=== PATIENT | female | born 1985 ===

== ENCOUNTER 2016-07-12 19:26 | Emergency (ER) | payer OTHER ==
[2016-07-12 19:30] VITALS: BMI 23.8
[2016-07-12 19:32] VITALS: BP 122/62; PULSE 94; RESP 19; TEMP 98.2; O2SAT 99
--- NOTE | 2016-07-12 19:59 | ED PDOC ---
Arrival/HPI - General Chief Complaint: Abdominal Pain Time Seen by Provider: 07/12/16 19:35 Historian: Patient - History of Present Illness Narrative History of Present Illness (Text): 07/12/16 20:00 Lindsey Odonnell is a 31 year old female, whose past medical history includes appendectomy, who presents to the Emergency department complaining of RLQ pain for the past few days. Patient notes pain is intermittent but has been occurring more frequently today. Patient denies any radiating pain, vaginal discharge, vaginal bleeding, hematuria, urinary frequency, dysuria, nausea, vomiting, diarrhea, fever, chills, back pain, headache, dizziness, or any other complaints Time/Duration: Other (few days) Symptom Onset: Gradual Symptom Course: Unchanged, Intermittent Activities at Onset: Light Context: Home Past Medical History - Provider Review Nursing Documentation Reviewed: Yes - Infectious Disease Hx of Infectious Diseases: None - Tetanus Immunization Tetanus Immunization: Unknown - Cardiac Hx Cardiac Disorders: Yes Other/Comment: "leaky heartvalve" - Pulmonary Hx Asthma: Yes - Neurological Hx Neurological Disorder: No - HEENT Hx HEENT Disorder: No - Renal Hx Renal Disorder: No - Endocrine/Metabolic Hx Endocrine Disorders: No - Hematological/Oncological Hx Blood Disorders: Yes Hx Anemia: Yes - Integumentary Hx Dermatological Disorder: No - Musculoskeletal/Rheumatological Hx Musculoskeletal Disorders: No - Gastrointestinal Hx Gastrointestinal Disorders: No - Genitourinary/Gynecological Hx Genitourinary Disorders: No - Psychiatric Hx Psychophysiologic Disorder: No Hx Depression: No Hx Emotional Abuse: No Hx Physical Abuse: No Hx Substance Use: No - Surgical History Hx Appendectomy: Yes Hx Section: Yes (x1) - Anesthesia Hx Anesthesia: Yes Hx Anesthesia Reactions: No Hx Malignant Hyperthermia: No - Suicidal Assessment Feels Threatened In Home Enviroment: No Family/Social History - Physician Review Nursing Documentation Reviewed: Yes Family/Social History: No Known Family HX Smoking Status: Never Smoked Hx Alcohol Use: No Hx Substance Use: No Hx Substance Use Treatment: No Allergies/Home Meds Allergies/Adverse Reactions: Allergies azithromycin Allergy (Verified 07/12/16 19:31) RASH cephalexin Allergy (Verified 07/12/16 19:31) RASH clarithromycin Allergy (Verified 07/12/16 19:31) URTICARIA Penicillins Allergy (Verified 07/12/16 19:31) RASH Home Medications: Home Meds Medication Instructions Recorded Confirmed Albuterol 0.09 mg IH DAILY PRN 09/24/12 07/12/16 Review of Systems - Physician Review All systems were reviewed & negative as marked: Yes - Review of Systems Constitutional: Normal. absent: Fevers Eyes: Normal ENT: Normal Respiratory: Normal. absent: SOB, Cough Cardiovascular: Normal. absent: Chest Pain Gastrointestinal: Abdominal Pain. absent: Diarrhea, Nausea, Vomiting Genitourinary Female: Normal. absent: Dysuria, Frequency, Hematuria, Urine Output Changes, Vaginal Bleeding, Vaginal Discharge Musculoskeletal: Normal. absent: Back Pain, Neck Pain Skin: Normal. absent: Rash Neurological: Normal. absent: Headache, Dizziness Endocrine: Normal Hemo/Lymphatic: Normal Psychiatric: Normal Physical Exam Vital Signs Reviewed: Yes Vital Signs Temp Pulse Resp BP Pulse Ox 07/12/16 19:32 98.2 F 94 H 19 122/62 99 Temperature: Afebrile Blood Pressure: Normal Pulse: Regular Respiratory Rate: Normal Appearance: Positive for: Well-Appearing, Non-Toxic, Comfortable Pain Distress: None Mental Status: Positive for: Alert and Oriented X 3 - Systems Exam Head: Present: Atraumatic, Normocephalic Pupils: Present: PERRL Extroacular Muscles: Present: EOMI Conjunctiva: Present: Normal Mouth: Present: Moist Mucous Membranes Neck: Present: Normal Range of Motion Respiratory/Chest: Present: Clear to Auscultation, Good Air Exchange. No: Respiratory Distress, Accessory Muscle Use Cardiovascular: Present: Regular Rate and Rhythm, Normal S1, S2. No: Murmurs Abdomen: Present: Normal Bowel Sounds. No: Tenderness, Distention, Peritoneal Signs Back: Present: Normal Inspection Upper Extremity: Present: Normal Inspection. No: Cyanosis, Edema Lower Extremity: Present: Normal Inspection. No: Edema Neurological: Present: GCS=15, CN II-XII Intact, Speech Normal Skin: Present: Warm, Dry, Normal Color. No: Rashes Psychiatric: Present: Alert, Oriented x 3, Normal Insight, Normal Concentration Medical Decision Making ED Course and Treatment: 07/12/16 20:00 Impression: 31 year old female complaining of intermittent RLQ last few days, more frequent today. Plan: -- Transvaginal US -- UA -- Reassess and disposition Progress Notes: 07/12/16 21:06 Reviewed sono, Transvaginal US shows: 1. No acute findings. 2. Non-acute findings are described above. 07/12/16 21:45 Discussed results of US, labs, and Urinalysis with pt. Pt still concerned as to why she is experiencing abdominal pain. Pt was offered CT scan. Pt is agreeable with plan. CT Abdomen and Pelvis with IV contrast ordered. 07/13/16 00:59 reviewed radiology, CT Abdomen and Pelvis shows: 1. Involuting or ruptured LEFT ovarian follicle/cyst. 2. Incidental/non-acute findings are described above. 07/13/16 01:10 On re-evaluation, the patient feels better and is in no acute distress. I have discussed the results and plan with the patient, who expresses understanding. Patient in agreement with plan to discharged home. Patient is stable for discharge. Patient was instructed to follow up with physician/clinic in 1-2 days or return if symptoms worsen or new concerning symptoms arise. - Lab Interpretations Lab Results: 07/12/16 23:01 07/12/16 23:01 Lab Results 07/12/16 23:01: Sodium 137, Potassium 4.5, Chloride 103, Carbon Dioxide 29, Anion Gap 10, BUN 18, Creatinine 0.7, Est GFR ( Amer) > 60, Est GFR (Non- Af Amer) > 60, Random Glucose 93, Calcium 9.1, Total Bilirubin 0.6, AST 18, ALT 29, Alkaline Phosphatase 69, Total Protein 7.1, Albumin 3.9, Globulin 3.3, Albumin/Globulin Ratio 1.2 07/12/16 23:01: WBC 7.3, RBC 3.83, Hgb 11.6 L, Hct 33.7 L, MCV 88.0, MCH 30.3, MCHC 34.4, RDW 13.2, Plt Count 301, MPV 9.8, Gran % 44.8 L, Lymph % (Auto) 41.8 H, [place] % (Auto) 8.3 H, Eos % (Auto) 4.8, Baso % (Auto) 0.3, Gran # 3.26, Lymph # 3.0, [place] # 0.6, Eos # 0.4, Baso # 0.02 07/12/16 19:57: Urine Color Yellow, Urine Appearance Clear, Urine pH 6.5, Ur Specific [place] 1.025, Urine Protein Negative, Urine Glucose (UA) Negative, Urine Ketones Negative, Urine Blood Small H, Urine Nitrate Negative, Urine Bilirubin Negative, Urine Urobilinogen 1.0 H, Ur Leukocyte Esterase Negative, Urine RBC 5 - 10, Urine WBC 2 - 5, Ur Epithelial Cells 4 - 5, Urine Bacteria Small, Urine Other Mucus, Urine HCG, Qual Negative I have reviewed the lab results: Yes - RAD Interpretation Narrative RAD Interpretations (Text): Transvaginal US shows: Uterus/cervix: Uterus measures 7.4 x 4.3 x 4.7 cm in size. No myometrial mass. Endometrium: 0.5 cm in thickness. Right ovary: 1.6 x 1.7 x 2.5 cm in size. No mass. Small follicles. Normal flow. Left ovary: 1.9 x 2.6 x 1.3 cm in size. No mass. Small follicles. Normal flow. Free fluid: No significant free fluid. Bladder: Unremarkable as visualized. IMPRESSION: 1. No acute findings. 2. Non-acute findings are described above. CT Abdomen and Pelvis shows: Lower thorax: No acute findings. ABDOMEN: Liver: Minimal periportal edema. Gallbladder and bile ducts: No calcified stones. No ductal dilation. Pancreas: No ductal dilation. No mass. Spleen: No splenomegaly. Adrenals: No mass. Kidneys and ureters: Too small to characterize lesion within RIGHT kidney. No hydronephrosis. Stomach and bowel: No definite mural thickening. No obstruction. Appendix: No definite findings to suggest acute appendicitis. PELVIS: Bladder: Unremarkable. Reproductive: Slight heterogeneity of uterus. 1.3 x 1.2 x 1.3 cm peripherally enhancing hypodensity with crenulated margins within LEFT ovary(coronal image 49, axial image 123). ABDOMEN and PELVIS: Intraperitoneal space: Trace free fluid within pelvis. No free air. Bones/joints: No acute fracture. Soft tissues: Unremarkable. Vasculature: Unremarkable. No abdominal aortic aneurysm. Lymph nodes: No pathologically enlarged lymph nodes. IMPRESSION: 1. Involuting or ruptured LEFT ovarian follicle/cyst. 2. Incidental/non-acute findings are described above. Radiology Orders: 07/12/16 20:00 TRANSVAGINAL [US] Stat 07/12/16 21:46 ABD & PELVIS IV CONTRAST ONLY [CT] Stat Admitting Clerk: Radiologist - Medication Orders Current Medication Orders: Discontinued Medications Iohexol (Omnipaque 350 100 Ml) Confirm Administered Dose 350 mg .ROUTE .STK-MED ONE Stop: 07/13/16 00:03 - Scribe Statement The provider has reviewed the documentation as recorded by the Scribe Miya Mclaughlin All medical record entries made by the Scribe were at my direction and personally dictated by me. I have reviewed the chart and agree that the record accurately reflects my personal performance of the history, physical exam, medical decision making, and the department course for this patient. I have also personally directed, reviewed, and agree with the discharge instructions and disposition. Disposition/Present on Arrival - Present on Arrival Any Indicators Present on Arrival: No History of DVT/PE: No History of Uncontrolled Diabetes: No Urinary Catheter: No History of Decub. Ulcer: No History Surgical Site Infection Following: None - Disposition Have Diagnosis and Disposition been Completed?: Yes Diagnosis: Abdominal pain Disposition: HOME/ ROUTINE Disposition Time: 01:10 Condition: GOOD Discharge Instructions (ExitCare): Acute Abdominal Pain (ED) Referrals: Vane Mendoza MD [Primary Care Provider] - Follow up with primary Forms: WORK NOTE
[2016-07-12 20:17] LABS: PH,URINE 6.5 (4.7-8.0); URINE BILIRUBIN NEGATIVE (NEGATIVE); URINE BLOOD SMALL (NEGATIVE); URINE GLUCOSE (UA) NEGATIVE (NEGATIVE); URINE KETONE NEGATIVE (NEGATIVE); URINE LEUKOCYTE ESTERASE NEGATIVE Leu/uL (NEGATIVE); URINE PROTEIN NEGATIVE mg/dL (<30 mg/dL)
[2016-07-12 20:22] LABS: URINE APPEARANCE CLEAR (CLEAR); URINE COLOR YELLOW (YELLOW)
[2016-07-12 20:34] LABS: URINE BACTERIA SMALL (NEG)
--- NOTE | 2016-07-12 21:06 | US ---
EXAM: US Pelvis Complete, Transabdominal CLINICAL HISTORY: 31 years old, female; Pain; Abdominal pain; Right lower quadrant; Additional info: Rlq pain TECHNIQUE: Real-time transabdominal pelvic ultrasound (complete) with image documentation. COMPARISON: No relevant prior studies available. FINDINGS: Uterus/cervix: Uterus measures 7.4 x 4.3 x 4.7 cm in size. No myometrial mass. Endometrium: 0.5 cm in thickness. Right ovary: 1.6 x 1.7 x 2.5 cm in size. No mass. Small follicles. Normal flow. Left ovary: 1.9 x 2.6 x 1.3 cm in size. No mass. Small follicles. Normal flow. Free fluid: No significant free fluid. Bladder: Unremarkable as visualized. IMPRESSION: 1.No acute findings. 2.Non-acute findings are described above. EXAM: US Pelvis, Transvaginal CLINICAL HISTORY: 31 years old, female; Pain; Abdominal pain; Right lower quadrant; Additional info: Rlq pain TECHNIQUE: Real-time transvaginal pelvic ultrasound (complete) with image documentation. Transvaginal imaging was used for better evaluation of the endometrium and adnexa. COMPARISON: No relevant prior studies available. FINDINGS: Uterus/cervix: Uterus measures 7.4 x 4.3 x 4.7 cm in size. No myometrial mass. Endometrium: 0.5 cm in thickness. Right ovary: 1.6 x 1.7 x 2.5 cm in size. No mass. Small follicles. Normal flow. Left ovary: 1.9 x 2.6 x 1.3 cm in size. No mass. Small follicles. Normal flow. Free fluid: No significant free fluid. Bladder: Empty bladder which cannot be evaluated with this probe.
[2016-07-12 23:06] LABS: ADD MANUAL DIFF? NO
[2016-07-12 23:12] LABS: BASO # 0.02 K/mm3 (0.0-2.0); BASO % 0.3 % (0.0-3.0); EOS # 0.4 (0.0-0.7); EOS % 4.8 % (1.5-5.0); GRAN # 3.26 (1.4-6.5); GRAN % 44.8 % (50.0-68.0); HEMATOCRIT 33.7 % (36.0-48.0); LYMPH % 41.8 % (22.0-35.0); MEAN CORPUSCULAR HEMOGLOBIN 30.3 pg (25.0-35.0); MEAN CORPUSCULAR HGB CONC 34.4 g/dl (31.0-37.0); MEAN PLATELET VOLUME 9.8 fl (7.0-11.0); MONO # 0.6 (0.1-0.6); MONO % 8.3 % (1.0-6.0); PLATELET COUNT 301 10^3/uL (120.0-450.0); RED CELL DISTRIBUTION WIDTH 13.2 % (11.5-14.5); WHITE BLOOD COUNT 7.3 10^3/ul (4.5-11.0)
[2016-07-12 23:19] LABS: ALB/GLOB RATIO 1.2 (1.1-1.8); ALKALINE PHOSPHATASE 69 U/L (38-133); ALT/SGPT 29 U/L (7-56); AST/SGOT 18 U/L (15-39); BILIRUBIN,TOTAL 0.6 mg/dL (0.2-1.3); BLOOD UREA NITROGEN 18 mg/dL (7-21); CALCIUM 9.1 mg/dL (8.4-10.5); CARBON DIOXIDE 29 mmol/L (21-33); CHLORIDE 103 mmol/L (98-107); GFR AFRICAN-AMERICAN > 60; GLUCOSE,RANDOM 93 mg/dL (70-110); POTASSIUM 4.5 mmol/L (3.6-5.0); SODIUM 137 mmol/L (132-148); TOTAL PROTEIN 7.1 g/dL (5.8-8.3)
[2016-07-13] MEDS ORDERED: Iohexol 350 MG/100 ML VIAL ONE (00:02)
--- NOTE | 2016-07-13 09:18 | CT ---
PROCEDURE: CT Abdomen and Pelvis with contrast HISTORY: abd pain COMPARISON: None. TECHNIQUE: Contrast dose: 100 mL Omnipaque 350 Radiation dose: Total exam DLP = 240.67 mGy-cm. This CT exam was performed using one or more of the following dose reduction techniques: Automated exposure control, adjustment of the mA and/or kV according to patient size, and/or use of iterative reconstruction technique. FINDINGS: LOWER THORAX: Unremarkable. LIVER: Unremarkable. No gross lesion or ductal dilatation. GALLBLADDER AND BILE DUCTS: Unremarkable. PANCREAS: Unremarkable. No gross lesion or ductal dilatation. SPLEEN: Unremarkable. ADRENALS: Unremarkable. No mass. KIDNEYS AND URETERS: Right lower pole cortical cyst, 6 mm. No calculus or hydronephrosis. VASCULATURE: Unremarkable. No aortic aneurysm. BOWEL: No bowel obstruction. Mild retained feces. APPENDIX: Not identified. No secondary findings to suggest acute appendicitis. PERITONEUM: Trace fluid in cul-de-sac. LYMPH NODES: Unremarkable. No enlarged lymph nodes. BLADDER: Poorly distended. No gross abnormality. REPRODUCTIVE: Unremarkable uterus. Irregularly-shaped peripherally enhancing left ovarian structure, likely involuting or ruptured follicle. This measures 2 cm in greatest dimension. BONES: No acute fracture. OTHER FINDINGS: None. IMPRESSION: Involuting/ ruptured left ovarian follicle. Trace fluid in cul-de-sac. No other acute abnormality identified. Preliminary interpretation of this examination was reported by [employer] at 12:31 a.m. on 07/13/2016. There is concurrence of this report with the preliminary interpretation.
== END 2016-07-13 01:20 | disposition home or self-care (01) ==
LOC: ED 19:26
DX: R10.9 Unspecified abdominal pain (principal)
CPT/HCPCS: 74177; 76830; 80053; 81001; 84703; 85025; 99284; Q9967

== ENCOUNTER 2017-07-09 12:11 | Emergency (ER) | payer OTHER ==
[2017-07-09 12:11] VITALS: BMI 23.8
[2017-07-09 12:21] VITALS: RESP 18; TEMP 98.3; O2SAT 96
[2017-07-09] MEDS ORDERED: Sodium Chloride 0.9% 1,000 ML IV STA (12:28)
[2017-07-09 12:54] LABS: BASO # 0.02 K/mm3 (0.0-2.0); BASO % 0.3 % (0.0-3.0); EOS # 0.1 (0.0-0.7); EOS % 1.9 % (1.5-5.0); GRAN # 3.77 (1.4-6.5); GRAN % 63.9 % (50.0-68.0); HEMOGLOBIN 13.7 g/dL (12.0-16.0); LYMPH # 1.6 (1.2-3.4); LYMPH % 26.8 % (22.0-35.0); MEAN CELL VOLUME 88.2 fl (80.0-105.0); MEAN CORPUSCULAR HEMOGLOBIN 30.6 pg (25.0-35.0); MEAN CORPUSCULAR HGB CONC 34.7 g/dl (31.0-37.0); MEAN PLATELET VOLUME 9.6 fl (7.0-11.0); MONO # 0.4 (0.1-0.6); MONO % 7.1 % (1.0-6.0); RBC 4.48 10^6/uL (3.5-6.1); RED CELL DISTRIBUTION WIDTH 13.2 % (11.5-14.5); URINE BILIRUBIN NEGATIVE (NEGATIVE); URINE BLOOD MODERATE (NEGATIVE); URINE GLUCOSE (UA) NEGATIVE (NEGATIVE); URINE LEUKOCYTE ESTERASE NEGATIVE Leu/uL (NEGATIVE); URINE PROTEIN NEGATIVE mg/dL (<30 mg/dL); URINE UROBILINOGEN 0.2 E.U./dL (<1 E.U./dL); WHITE BLOOD COUNT 5.9 10^3/ul (4.5-11.0)
[2017-07-09 12:57] LABS: URINE APPEARANCE CLEAR (CLEAR); URINE COLOR YELLOW (YELLOW)
[2017-07-09 12:59] LABS: URINE RBC 15 - 20 /hpf (0-2); URINE WBC 0 - 2 /hpf (0-6)
[2017-07-09 13:00] LABS: URINE BACTERIA SMALL (NEG)
[2017-07-09 13:04] LABS: ALB/GLOB RATIO 1.4 (1.1-1.8); ALBUMIN 4.5 g/dL (3.0-4.8); ALT/SGPT 25 U/L (7-56); AST/SGOT 24 U/L (14-36); BLOOD UREA NITROGEN 14 mg/dL (7-21); CALCIUM 9.2 mg/dL (8.4-10.5); GFR AFRICAN-AMERICAN > 60; GFR NON-AFRICAN AMERICAN > 60; LIPASE 79 U/L (23-300)
--- NOTE | 2017-07-09 13:36 | ED PDOC ---
Arrival/HPI - General Chief Complaint: Abdominal Pain Time Seen by Provider: 07/09/17 12:18 Historian: Patient - History of Present Illness Narrative History of Present Illness (Text): 07/09/17 12:35 A 32 year old female, whose past medical history includes appendectomy, C- section, and ovarian cyst removal, who presents to the emergency department complaining of right lower pelvic pain for 1 week. Patient states pain has been intermittent for the past week, but worsened today. Patient notes symptoms are similar to previous episodes of ovarian cyst. Patient reports while at work today, she felt near-syncopal with associated dizziness and and right-sided weakness. Additionally during triage, patient began experiencing some right lower back discomfort. Patient denies any vaginal bleeding, left-side weakness, any visual/speech changes, headache, or any other complaints at this time. PMD: [facility] 0 Symptom Onset: Gradual Symptom Course: Unchanged Activities at Onset: Light Context: Home, Work Past Medical History - Provider Review Nursing Documentation Reviewed: Yes - Infectious Disease Hx of Infectious Diseases: None - Tetanus Immunization Tetanus Immunization: Unknown - Reproductive Menopause: No - Cardiac Hx Cardiac Disorders: Yes Other/Comment: "leaky heartvalve" - Pulmonary Hx Asthma: Yes - Neurological Hx Neurological Disorder: No - HEENT Hx HEENT Disorder: No - Renal Hx Renal Disorder: No - Endocrine/Metabolic Hx Endocrine Disorders: No - Hematological/Oncological Hx Blood Disorders: Yes Hx Anemia: Yes - Integumentary Hx Dermatological Disorder: No - Musculoskeletal/Rheumatological Hx Musculoskeletal Disorders: No - Gastrointestinal Hx Gastrointestinal Disorders: No - Genitourinary/Gynecological Hx Genitourinary Disorders: No - Psychiatric Hx Psychophysiologic Disorder: No Hx Depression: No Hx Emotional Abuse: No Hx Physical Abuse: No Hx Substance Use: No - Surgical History Hx Appendectomy: Yes Hx Section: Yes (x1) - Anesthesia Hx Anesthesia: Yes Hx Anesthesia Reactions: No Hx Malignant Hyperthermia: No - Suicidal Assessment Feels Threatened In Home Enviroment: No Family/Social History - Physician Review Nursing Documentation Reviewed: Yes Family/Social History: No Known Family HX Smoking Status: Never Smoked Hx Alcohol Use: No Hx Substance Use: No Hx Substance Use Treatment: No Allergies/Home Meds Allergies/Adverse Reactions: Allergies azithromycin Allergy (Verified 07/12/16 19:31) RASH cephalexin Allergy (Verified 07/12/16 19:31) RASH clarithromycin Allergy (Verified 07/12/16 19:31) URTICARIA Penicillins Allergy (Verified 07/12/16 19:31) RASH Home Medications: Home Meds Medication Instructions Recorded Confirmed Albuterol 0.09 mg IH DAILY PRN 09/24/12 07/12/16 Review of Systems - Physician Review All systems were reviewed & negative as marked: Yes - Review of Systems Constitutional: absent: Fevers Eyes: absent: Vision Changes Cardiovascular: absent: Syncope (near-syncopal episode) Gastrointestinal: Abdominal Pain (right side pelvic pain) Genitourinary Female: absent: Vaginal Bleeding Musculoskeletal: Back Pain (right lower back pain) Neurological: Dizziness, Other (+right-side weakness). absent: Speech Changes Physical Exam Vital Signs Reviewed: Yes Vital Signs Temp Pulse Resp BP Pulse Ox 07/09/17 14:02 65 18 115/75 96 07/09/17 12:21 98.3 F 61 18 113/74 96 Temperature: Afebrile Blood Pressure: Normal Pulse: Regular Respiratory Rate: Normal Appearance: Positive for: Well-Appearing, Non-Toxic, Comfortable Pain Distress: None Mental Status: Positive for: Alert and Oriented X 3 - Systems Exam Head: Present: Atraumatic, Normocephalic Pupils: Present: PERRL Extroacular Muscles: Present: EOMI Conjunctiva: Present: Normal Mouth: Present: Moist Mucous Membranes Neck: Present: Normal Range of Motion Respiratory/Chest: Present: Clear to Auscultation, Good Air Exchange. No: Respiratory Distress, Accessory Muscle Use Cardiovascular: Present: Regular Rate and Rhythm, Normal S1, S2. No: Murmurs Abdomen: No: Tenderness, Distention, Peritoneal Signs Genitourinary/Pelvic Exam: Present: Vaginal Bleeding (Mild vaginal bleeding). No: Adenexal Tenderness, Cervical Motion Tendernes Back: Present: Normal Inspection Upper Extremity: Present: Normal Inspection. No: Cyanosis, Edema Lower Extremity: Present: Normal Inspection. No: Edema Neurological: Present: GCS=15, CN II-XII Intact, Speech Normal Skin: Present: Warm, Dry, Normal Color. No: Rashes Psychiatric: Present: Alert, Oriented x 3, Normal Insight, Normal Concentration Medical Decision Making ED Course and Treatment: 07/09/17 12:39 Impression: 32 year old female with right lower pelvic pain, right-side weakness , right-side lower back pain, and dizziness. Plan: -- Head CT -- Abd/Pelvis CT -- Labs -- Urine Culture -- Transvaginal Ultrasound -- Urinalysis -- Tylenol -- IV Fluids -- Reassess and disposition Prior Visits: Notes and results from previous visits were reviewed. Patient was last seen in the emergency department on 07/12/2016 for RLQ pain. Patient was discharged home. Progress Notes: 07/09/2017 13:35 Transvaginal Ultrasound IMPRESSION: Ovarian cysts. No evidence of torsion. Dictator: Fly Byrd MD 07/09/2017 13:[address] IMPRESSION: Normal CT of the Head. Dictator: Fly Byrd MD 07/09/2017 13:40 Abd/Pelvis CT IMPRESSION: No evidence of urolithiasis. No acute intra-abdominal findings. Dictator: Fly Byrd MD 07/09/17 14:39 Patient no longer experiencing right-sided weakness. Discussed the results and plan with the patient, who expresses understanding. Patient in agreement with plan to be discharged home. Patient instructed to follow-up with neurologist Dr. Micthell for further evaluation. - Lab Interpretations Microbiology Results: Microbiology Results 07/09/17 12:45 Urine Urine Culture - Final No Growth (<1,000 CFU/ML) Lab Results: 07/09/17 12:45 07/09/17 12:45 Lab Results 07/09/17 12:45: Sodium 143, Potassium 4.0, Chloride 103, Carbon Dioxide 27, Anion Gap 17, BUN 14, Creatinine 0.7, Est GFR ( Amer) > 60, Est GFR (Non- Af Amer) > 60, Random Glucose 110, Calcium 9.2, Magnesium 2.0, Total Bilirubin 0.8, AST 24, ALT 25, Alkaline Phosphatase 80, Total Protein 7.8, Albumin 4.5, Globulin 3.3, Albumin/Globulin Ratio 1.4, Lipase 79 07/09/17 12:45: Urine Color Yellow, Urine Appearance Clear, Urine pH 6.0, Ur Specific [place] 1.015, Urine Protein Negative, Urine Glucose (UA) Negative, Urine Ketones Negative, Urine Blood Moderate H, Urine Nitrate Negative, Urine Bilirubin Negative, Urine Urobilinogen 0.2, Ur Leukocyte Esterase Negative, Urine RBC 15 - 20, Urine WBC 0 - 2, Ur Epithelial Cells 4 - 5, Urine Bacteria Small 07/09/17 12:45: WBC 5.9 D, RBC 4.48, Hgb 13.7, Hct 39.5, MCV 88.2, MCH 30.6, MCHC 34.7, RDW 13.2, Plt Count 319, MPV 9.6, Gran % 63.9, Lymph % (Auto) 26.8, [place] % (Auto) 7.1 H, Eos % (Auto) 1.9, Baso % (Auto) 0.3, Gran # 3.77, Lymph # ( Auto) 1.6, [place] # (Auto) 0.4, Eos # (Auto) 0.1, Baso # (Auto) 0.02 I have reviewed the lab results: Yes - RAD Interpretation Radiology Orders: 07/09/17 12:29 HEAD W/O CONTRAST [CT] Stat 07/09/17 12:30 ABD & PELVIS W/O PO OR IV CONT [CT] Stat TRANSVAGINAL [US] Stat [employer] 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 - Medication Orders Current Medication Orders: Discontinued Medications Acetaminophen (Tylenol 325mg Tab) 975 mg PO STAT STA Stop: 07/09/17 12:29 Last Admin: 07/09/17 12:38 Dose: Not Given Non-Admin Reason: Patient Refused Sodium Chloride (Sodium Chloride 0.9%) 1,000 mls @ 100 mls/hr IV .Q10H STA Stop: 07/09/17 22:27 Last Admin: 07/09/17 12:38 Dose: 100 mls/hr eMAR Start Stop Document 07/09/17 12:38 EQ (Rec: 07/09/17 12:38 EQ [id number]) Intravenous Solution Start Date 07/09/17 Start Time 12:38 - Scribe Statement The provider has reviewed the documentation as recorded by the Roberto Pacheco Provider Scribe Attestation: All medical record entries made by the Ghislaineibharvey were at my direction and personally dictated by me. I have reviewed the chart and agree that the record accurately reflects my personal performance of the history, physical exam, medical decision making, and the department course for this patient. I have also personally directed, reviewed, and agree with the discharge instructions and disposition. Disposition/Present on Arrival - Present on Arrival History of DVT/PE: No History of Uncontrolled Diabetes: No Urinary Catheter: No History of Decub. Ulcer: No History Surgical Site Infection Following: None - Disposition Diagnosis: Ovarian cyst, Dizziness, Weakness Disposition: HOME/ ROUTINE Disposition Time: 13:45 Condition: IMPROVED Discharge Instructions (ExitCare): Vertigo (a Type of Dizziness), Ovarian Cysts , Weakness (ED) Additional Instructions: Ms Odonnell, thank you for letting us take care of you today. Your provider was Dr. Ackerman. You were treated for Ovarian Cyst, Dizziness, Weakness. The emergency medical care you received today was directed at your acute symptoms. If you were prescribed any medication, please fill it and take as directed. It may take several days for your symptoms to resolve. Return to the Emergency Department if your symptoms worsen, do not improve, or if you have any other problems. Please contact your doctor or call one of the physicians/clinics you have been referred to that are listed on the Patient Visit Information form that is included in your discharge packet. Bring any paperwork you were given at discharge with you along with any medications you are taking to your follow up visit. Our treatment cannot replace ongoing medical care by a primary care provider (PCP) outside of the emergency department. Thank you for allowing the [facility] team to be part of your care today. If you had an X-Ray or CT scan: A Radiologist will review the ED reading if any change in treatment is needed we will contact you. If you had a blood, urine, or wound culture: It will take several days for the results, if any change in treatment is needed we will contact you. If you had an STI test: It will take 48 hours for the results. Please call after 1 week if you have not heard back. Referrals: Vane Mendoza MD [Primary Care Provider] - Follow up with primary Magen Hubbard MD [Staff Provider] - Follow up with primary Forms: [employer] (Swiss), WORK NOTE
--- NOTE | 2017-07-09 13:37 | US ---
HISTORY: right pelvic pain r/o cyst/torsion COMPARISON: None available. TECHNIQUE: Transvaginal FINDINGS: UTERUS: Measures 7.8 x 4.5 x 5.3 cm. Normal in size and appearance. No fibroid or other mass lesion seen. ENDOMETRIUM: Measures 10 mm in diameter. Unremarkable. CERVIX: No cervical abnormality identified. 3.1 cm in length RIGHT OVARY: Measures 2.8 x 2.0 x 2.8 cm. No solid mass. Normal flow. There is a 2 cm cyst LEFT OVARY: Measures 2.8 x 1.2 x 3.3 cm. No solid mass. Normal flow. FREE FLUID: No significant free fluid noted. OTHER FINDINGS: None. IMPRESSION: Ovarian cysts. No evidence of torsion
--- NOTE | 2017-07-09 13:39 | CT ---
PROCEDURE: CT HEAD WITHOUT CONTRAST. HISTORY: right sided weakness/abdominal pain COMPARISON: None available. TECHNIQUE: Axial computed tomography images were obtained through the head/brain without intravenous contrast. Radiation dose: Total exam DLP = 884 mGy-cm. This CT exam was performed using one or more of the following dose reduction techniques: Automated exposure control, adjustment of the mA and/or kV according to patient size, and/or use of iterative reconstruction technique. FINDINGS: HEMORRHAGE: No intracranial hemorrhage. BRAIN: No mass effect or edema. No atrophy or chronic microvascular ischemic changes. VENTRICLES: Unremarkable. No hydrocephalus. CALVARIUM: Unremarkable. PARANASAL SINUSES: Unremarkable as visualized. No significant inflammatory changes. MASTOID AIR CELLS: Unremarkable as visualized. No inflammatory changes. OTHER FINDINGS: None. IMPRESSION: Normal CT of the Head.
--- NOTE | 2017-07-09 13:42 | CT ---
PROCEDURE: CT Abdomen and Pelvis without intravenous contrast HISTORY: right flank pain r/o kidneys stones COMPARISON: None. TECHNIQUE: Without contrast.. Contrast Dose: Radiation dose: Total exam DLP = Total exam DLP = 234 mGy-cm. This CT exam was performed using one or more of the following dose reduction techniques: Automated exposure control, adjustment of the mA and/or kV according to patient size, and/or use of iterative reconstruction technique. FINDINGS: LOWER THORAX: Unremarkable. LIVER: Unremarkable. No gross lesion or ductal dilatation. GALLBLADDER AND BILE DUCTS: Unremarkable. PANCREAS: Unremarkable. No gross lesion or ductal dilatation. SPLEEN: Unremarkable. ADRENALS: Unremarkable. No mass. KIDNEYS AND URETERS: Unremarkable. No hydronephrosis. No solid mass. VASCULATURE: Unremarkable. No aortic aneurysm. BOWEL: Unremarkable. No obstruction. No gross mural thickening. APPENDIX: Unremarkable. Normal appendix. PERITONEUM: Unremarkable. No free fluid. No free air. LYMPH NODES: Unremarkable. No enlarged lymph nodes. BLADDER: Unremarkable. REPRODUCTIVE: Unremarkable. BONES: No acute fracture. OTHER FINDINGS: None. IMPRESSION: No evidence of urolithiasis. No acute intra-abdominal findings.
[2017-07-09 14:03] VITALS: BP 115/75; PULSE 65
== END 2017-07-09 14:48 | disposition home or self-care (01) ==
LOC: ED 12:11
DX: N83.201 Unspecified ovarian cyst, right side (principal); R42 Dizziness and giddiness; R53.1 Weakness; D64.9 Anemia, unspecified
CPT/HCPCS: 70450; 74176; 76830; 80053; 81001; 83690; 83735; 85025; 87086; 99283; J7040

== ENCOUNTER 2017-08-27 12:23 | Emergency (ER) | payer OTHER ==
[2017-08-27 12:28] VITALS: BMI 23.6
[2017-08-27 12:45] VITALS: RESP 18; TEMP 98.4
--- NOTE | 2017-08-27 14:40 | RAD ---
PROCEDURE: Radiographs of the right elbow. HISTORY: right elbow pain, medial aspect COMPARISON: No prior. FINDINGS: BONES: Bone alignment and mineralization are normal. There is no acute displaced fracture or bone destruction. JOINTS: Normal. SOFT TISSUES: Normal. JOINT EFFUSION: Small joint effusion. OTHER FINDINGS: None. IMPRESSION: No acute displaced fracture or dislocation. Small joint effusion
--- NOTE | 2017-08-27 15:21 | ED PDOC ---
Arrival/HPI - General Chief Complaint: Upper Extremity Problem/Injury Time Seen by Provider: 08/27/17 12:44 Historian: Patient - History of Present Illness Narrative History of Present Illness (Text): 08/27/17 15:41 32yr old female presents today with right elbow pain status post injury. Patient states she was trying to open the door to the ambulance and it was stuck. Patient states she pulled forcefully the door opened and she believes she may have hyperextended the elbow. Patient states at present time she has severe pain to the medial aspect of the elbow only with range of motion of the elbow. Patient states if she holds the arm in 90 angle she has no pain. Patient states the pain becomes severe and limits her range of motion whenever she attempts to move the arm. No medications have been taken for pain incident occurred prior to arrival. No other complaints. Time/Duration: Prior to Arrival Symptom Onset: Sudden Symptom Course: Unchanged Quality: Stabbing Past Medical History - Provider Review Nursing Documentation Reviewed: Yes - Travel History Have you recently traveled outside [place] w/in the past 3 mons?: No - Infectious Disease Hx of Infectious Diseases: None - Tetanus Immunization Tetanus Immunization: Unknown - Cardiac Hx Cardiac Disorders: Yes Other/Comment: "leaky heartvalve" - Pulmonary Hx Asthma: Yes - Neurological Hx Neurological Disorder: No - HEENT Hx HEENT Disorder: No - Renal Hx Renal Disorder: No - Endocrine/Metabolic Hx Endocrine Disorders: No - Hematological/Oncological Hx Blood Disorders: Yes Hx Anemia: Yes - Integumentary Hx Dermatological Disorder: No - Musculoskeletal/Rheumatological Hx Musculoskeletal Disorders: No - Gastrointestinal Hx Gastrointestinal Disorders: No - Genitourinary/Gynecological Hx Genitourinary Disorders: No - Psychiatric Hx Psychophysiologic Disorder: No Hx Depression: No Hx Emotional Abuse: No Hx Physical Abuse: No Hx Substance Use: No - Surgical History Hx Appendectomy: Yes Hx Section: Yes (x1) - Anesthesia Hx Anesthesia: Yes Hx Anesthesia Reactions: No Hx Malignant Hyperthermia: No - Suicidal Assessment Feels Threatened In Home Enviroment: No Family/Social History - Physician Review Nursing Documentation Reviewed: Yes Family/Social History: Unknown Family HX Smoking Status: Never Smoked Hx Alcohol Use: No Hx Substance Use: No Hx Substance Use Treatment: No Allergies/Home Meds Allergies/Adverse Reactions: Allergies azithromycin Allergy (Verified 07/12/16 19:31) RASH cephalexin Allergy (Verified 07/12/16 19:31) RASH clarithromycin Allergy (Verified 07/12/16 19:31) URTICARIA Penicillins Allergy (Verified 07/12/16 19:31) RASH Home Medications: Home Meds Medication Instructions Recorded Confirmed Albuterol HFA [Ventolin HFA 90 1 puff IH QID PRN 08/27/17 08/27/17 mcg/actuation (8 g)] Review of Systems - Review of Systems Constitutional: absent: Fatigue, Fevers Respiratory: absent: SOB, Cough Cardiovascular: absent: Chest Pain, Palpitations Gastrointestinal: absent: Abdominal Pain, Nausea, Vomiting Musculoskeletal: Arthralgias (right elbow pain). absent: Back Pain Skin: absent: Rash, Pruritis Neurological: absent: Headache, Dizziness Psychiatric: Anxiety (hx of). absent: Depression Physical Exam Vital Signs Reviewed: Yes Vital Signs Temp Pulse Resp BP Pulse Ox 08/27/17 15:25 78 18 128/76 98 08/27/17 12:23 98.4 F 84 18 121/73 97 Temperature: Afebrile Blood Pressure: Normal Pulse: Regular Respiratory Rate: Normal Appearance: Positive for: Well-Appearing, Non-Toxic, Comfortable Pain Distress: None Mental Status: Positive for: Alert and Oriented X 3 - Systems Exam Head: Present: Atraumatic Extroacular Muscles: Present: EOMI Mouth: Present: Moist Mucous Membranes Neck: Present: Normal Range of Motion Cardiovascular: Present: Regular Rate and Rhythm Upper Extremity: Present: NORMAL PULSES, Tenderness (right elbow; + ttp over the medial aspect of the right elbow; limited flexion and extension of elbow; minimal edema, sensation and distal pulses intact. cap refill <2. ), Swelling, Neurovascularly Intact, Capillary Refill < 2s. No: Normal ROM, Erythema, Deformity Lower Extremity: Present: Normal ROM Neurological: Present: GCS=15, Speech Normal Skin: Present: Warm, Dry, Normal Color. No: Rashes Psychiatric: Present: Alert, Oriented x 3 Medical Decision Making ED Course and Treatment: 08/27/17 19:03 Patient nontoxic well-appearing in no distress with stable vital signs X-rays of the right elbow; FINDINGS: BONES: Bone alignment and mineralization are normal. There is no acute displaced fracture or bone destruction. JOINTS: Normal. SOFT TISSUES: Normal. JOINT EFFUSION: Small joint effusion. OTHER FINDINGS: None. IMPRESSION: No acute displaced fracture or dislocation. Small joint effusion toradol IM Patient placed in long arm posterior splint. Sling applied. I discussed all results with patient advised to followup with the orthopedist for the next 2 days. Return if symptoms worsen persist or new symptoms develop i advised the patient that although the xrays show no fracture; there is still a possibility for ligamentous or tendon injury the patient must see the orthopedist for further evaluation. Patient verbalizes understanding of discharge instructions and need for immediate followup. all aspects of this case were discussed the attending of record. Impression: Elbow pain Motrin every 6 hours as needed for pain Flexeril one tablet every 8 hours as needed for muscle spasms: May cause drowsiness Rest, ice, compression, elevation Followup with the orthopedist within the next 2 days Followup with primary care physician within the next 2 days Return if any other concerning symptoms develop Reassessment Condition: Re-examined, Improved (Minimal improvement) - RAD Interpretation Radiology Orders: 08/27/17 12:44 ELBOW RIGHT 3 VIEWS ROUTINE [RAD] Stat - Medication Orders Current Medication Orders: Discontinued Medications Ketorolac Tromethamine (Toradol) 30 mg IM STAT STA Stop: 08/27/17 12:53 Last Admin: 08/27/17 12:58 Dose: 30 mg MAR Pain Assessment Document 08/27/17 12:58 GMD (Rec: 08/27/17 12:58 GMD [id number]) Pain Reassessment Is this a pain reassessment? No IM Administration Charges Document 08/27/17 12:58 GMD (Rec: 08/27/17 12:58 GMD [id number]) Injection Site MAR Injection Site Left Deltoid Charges for Administration # of IM Administrations 1 Procedures - Splinting Location: right elbow Hand-Made Type: fiberglass Splint: long arm posterior splint Pre-Proc Neuro Vasc Exam: normal Post-Proc Neuro Vasc Exam: normal Disposition/Present on Arrival - Present on Arrival Any Indicators Present on Arrival: No History of DVT/PE: No History of Uncontrolled Diabetes: No Urinary Catheter: No History of Decub. Ulcer: No History Surgical Site Infection Following: None - Disposition Have Diagnosis and Disposition been Completed?: Yes Diagnosis: Elbow pain Disposition: HOME/ ROUTINE Disposition Time: 15:00 Patient Plan: Discharge Condition: GOOD Additional Instructions: Motrin every 6 hours as needed for pain Flexeril; 1 tablet every 8 hours as needed for muscle spasms; may cause drowsiness. Rest, ice, compression, elevation Followup with the orthopedist within the next 2 days Followup with primary care physician within the next 2 days Return if any other concerning symptoms develop Prescriptions: Cyclobenzaprine [Cyclobenzaprine HCl] 10 mg PO Q8 #10 tab Ibuprofen [Motrin] 600 mg PO Q6H PRN #20 tab PRN Reason: pain/fever reduction Referrals: Ethan Chaudhry MD [Staff Provider] - Follow up with primary Bronson Perez MD [Staff Provider] - Follow up with primary Forms: [facility] (Micronesian), WORK NOTE
[2017-08-27 15:26] VITALS: BP 128/76; PULSE 78; O2SAT 98
== END 2017-08-27 15:27 | disposition home or self-care (01) ==
LOC: ED 12:23
DX: M25.521 Pain in right elbow (principal)
CPT/HCPCS: 29125; 73080; 96372; 99284; J1885

== ENCOUNTER 2017-10-19 07:41 | Emergency (ER) | payer OTHER ==
[2017-10-19 07:54] VITALS: BMI 22.8
[2017-10-19 07:59] VITALS: TEMP 98.2
[2017-10-19 08:23] LABS: BASO # 0.01 K/mm3 (0.0-2.0); BASO % 0.2 % (0.0-3.0); EOS # 0.2 (0.0-0.7); EOS % 2.9 % (1.5-5.0); GRAN # 3.9 (1.4-6.5); GRAN % 58.5 % (50.0-68.0); HEMOGLOBIN 13.6 g/dL (12.0-16.0); LYMPH # 2.1 (1.2-3.4); LYMPH % 32.2 % (22.0-35.0); MEAN CELL VOLUME 87.9 fl (80.0-105.0); MEAN CORPUSCULAR HEMOGLOBIN 29.9 pg (25.0-35.0); MEAN PLATELET VOLUME 9.8 fl (7.0-11.0); MONO # 0.4 (0.1-0.6); MONO % 6.2 % (1.0-6.0); RBC 4.55 10^6/uL (3.5-6.1); RED CELL DISTRIBUTION WIDTH 13.1 % (11.5-14.5); WHITE BLOOD COUNT 6.7 10^3/ul (4.5-11.0)
--- NOTE | 2017-10-19 08:23 | ED PDOC ---
Arrival/HPI - General Historian: Patient - History of Present Illness Time/Duration: < week Symptom Onset: Gradual Symptom Course: Unchanged, Intermittent Quality: Aching, Stabbing, Cramping Severity Level: 7 Context: Other (stretching, certain movements) <Nathan Decker - Last Filed: 10/19/17 12:30> <Spencer Mcgill - Last Filed: 10/19/17 16:00> - General Chief Complaint: Abdominal Pain Time Seen by Provider: 10/19/17 07:44 - History of Present Illness Narrative History of Present Illness (Text): 10/19/17 08:20 Patient is a 32 year old female with PMH of asthma presents to Emergency department with RLQ abdominal pain for the last four days. She describes the pain as an intermittent but sharp, stabbing type pain that is worsening. The pain started in her RLQ but has since radiated to her right pelvis and RUQ. She states that certain stretching movements and lying on her right side reproduce the pain. She states that she has had gas pains and belching more frequently for the past two weeks. She states that she has a history of a ruptured ovarian cyst on the right and thinks this may be related. She is also concerned that her last BM seemed to contain a large amount of mucus. (Nathan Decker) Past Medical History - Provider Review Nursing Documentation Reviewed: Yes - Infectious Disease Hx of Infectious Diseases: None - Tetanus Immunization Tetanus Immunization: Unknown - Cardiac Hx Cardiac Disorders: Yes Other/Comment: "leaky heartvalve" - Pulmonary Hx Asthma: Yes - Neurological Hx Neurological Disorder: No - HEENT Hx HEENT Disorder: No - Renal Hx Renal Disorder: No - Endocrine/Metabolic Hx Endocrine Disorders: No - Hematological/Oncological Hx Blood Disorders: Yes Hx Anemia: Yes - Integumentary Hx Dermatological Disorder: No - Musculoskeletal/Rheumatological Hx Musculoskeletal Disorders: No - Gastrointestinal Hx Gastrointestinal Disorders: No - Genitourinary/Gynecological Hx Genitourinary Disorders: No - Psychiatric Hx Psychophysiologic Disorder: No Hx Depression: No Hx Emotional Abuse: No Hx Physical Abuse: No Hx Substance Use: No - Surgical History Hx Appendectomy: Yes Hx Section: Yes (x1) - Anesthesia Hx Anesthesia: Yes Hx Anesthesia Reactions: No Hx Malignant Hyperthermia: No - Suicidal Assessment Feels Threatened In Home Enviroment: No <Nathan Decker - Last Filed: 10/19/17 12:30> Family/Social History - Physician Review Nursing Documentation Reviewed: Yes Family/Social History: Hypertension (mother and father), CAD/IN (father) Smoking Status: Current Some Days Smoker Hx Alcohol Use: Yes Frequency of alcohol use: Socially Hx Substance Use: No Hx Substance Use Treatment: No <Nathan Decker - Last Filed: 10/19/17 12:30> Allergies/Home Meds <Nathan Decker - Last Filed: 10/19/17 12:30> <Spencer Mcgill - Last Filed: 10/19/17 16:00> Allergies/Adverse Reactions: Allergies azithromycin Allergy (Verified 10/19/17 08:42) RASH cephalexin Allergy (Verified 10/19/17 08:42) RASH clarithromycin Allergy (Verified 10/19/17 08:42) URTICARIA Penicillins Allergy (Verified 10/19/17 08:42) RASH contrast dye Allergy (Uncoded 10/19/17 08:42) SHORTNESS OF BREATH Home Medications: Home Meds Medication Instructions Recorded Confirmed Albuterol HFA [Ventolin HFA 90 1 puff IH QID PRN 08/27/17 08/27/17 mcg/actuation (8 g)] Review of Systems - Physician Review All systems were reviewed & negative as marked: Yes - Review of Systems Constitutional: absent: Fatigue, Fevers Eyes: absent: Vision Changes ENT: absent: Sore Throat, Rhinorrhea Respiratory: absent: SOB, Cough Cardiovascular: absent: Chest Pain, JOHNSON Gastrointestinal: Abdominal Pain, Constipation. absent: Nausea, Vomiting, Food Intolerance Genitourinary Female: absent: Dysuria, Frequency Musculoskeletal: absent: Arthralgias Skin: absent: Rash, Pruritis Neurological: absent: Headache, Speech Changes Endocrine: absent: Diaphoresis Hemo/Lymphatic: absent: Adenopathy Psychiatric: absent: Anxiety, Depression <Nathan Decker - Last Filed: 10/19/17 12:30> Physical Exam Vital Signs Reviewed: Yes Temperature: Afebrile Blood Pressure: Normal Pulse: Regular Respiratory Rate: Normal Appearance: Positive for: Non-Toxic, Comfortable Pain Distress: None Mental Status: Positive for: Alert and Oriented X 3 - Systems Exam Head: Present: Atraumatic, Normocephalic Pupils: Present: PERRL Extroacular Muscles: Present: EOMI Conjunctiva: Present: Normal Ears: Present: Normal Mouth: Present: Moist Mucous Membranes Pharnyx: Present: Normal. No: ERYTHEMA, EXUDATE Nose (External): Present: Atraumatic Neck: Present: Normal Range of Motion. No: JVD Respiratory/Chest: Present: Clear to Auscultation. No: Wheezes, Rales, Rhonchi Cardiovascular: Present: Regular Rate and Rhythm, Normal S1, S2. No: Murmurs, Rub, Gallop Abdomen: Present: Tenderness (mild tenderness to palpation RLQ, negative Baez sign). No: Peritoneal Signs, Rebound, Guarding, McBurney's Point Tender, Rovsing's Sign Present, Scars Upper Extremity: Present: Normal Inspection. No: Cyanosis, Edema Lower Extremity: Present: Normal Inspection. No: Edema Neurological: Present: Speech Normal Skin: Present: Warm, Dry Psychiatric: Present: Alert, Oriented x 3 <Nathan Decker - Last Filed: 10/19/17 12:30> Vital Signs Temp Pulse Resp BP Pulse Ox 10/19/17 12:45 99 10/19/17 12:44 62 17 119/70 99 10/19/17 11:06 65 18 114/65 100 10/19/17 10:02 69 18 117/68 100 10/19/17 07:58 98.2 F 75 18 115/64 100 Medical Decision Making - Lab Interpretations I have reviewed the lab results: Yes Interpretation: All labs normal - RAD Interpretation [facility] Administrator: Radiologist <Nathan Decker - Last Filed: 10/19/17 12:30> <Spencer Mcgill - Last Filed: 10/19/17 16:00> ED Course and Treatment: 10/19/17 08:25 -Patient with mild RLQ abdominal pain -Suspect most likely secondary to ruptured R ovarian cyst, especially given her history -Low suspicion for gallbladder etiology at this point -Will get abdominal and transvaginal US -CBC, CMP, UA, urine hcg 10/19/17 11:00 -Abdominal US negative for bile duct dilatation or cholelithiasis -Transvaginal US Findings: Small amount of fluid in the endocervical canal of uncertain etiology. 2.8 cm simple cyst in the left ovary. Prominent tubular structure in the right adnexa could represent a prominent right fallopian tube, no evidence for hydrosalpinx. 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 Pelayo who agrees with outpatient follow up plan ( Nathan Decker) 10/19/17 15:59 pt seen with residnet right sided abd/pelvic pain. labs neg. h/o of previous appendectomy. refusees pelvic. pt has outpt appt today with rim turning finisher. discussed with ob show operations supervisor requests outpt fu. (Spencer Mcgill) - Lab Interpretations Lab Results: 10/19/17 08:15 10/19/17 08:15 Lab Results 10/19/17 08:35: Urine Color Yellow, Urine Appearance Clear, Urine pH 6.0, Ur Specific Clyo 1.025, Urine Protein Negative, Urine Glucose (UA) Negative, Urine Ketones Negative, Urine Blood Moderate H, Urine Nitrate Negative, Urine Bilirubin Negative, Urine Urobilinogen 0.2, Ur Leukocyte Esterase Negative, Urine RBC 0 - 2, Urine WBC 0 - 2, Ur Epithelial Cells 3 - 4, Urine Bacteria Few , Urine HCG, Qual Negative 10/19/17 08:15: Sodium 143, Potassium 4.7, Chloride 103, Carbon Dioxide 26, Anion Gap 18, BUN 16, Creatinine 0.7, Est GFR ( Amer) > 60, Est GFR (Non- Af Amer) > 60, Random Glucose 98, Calcium 9.8, Magnesium 1.9, Total Bilirubin 1.0, AST 18, ALT 27, Alkaline Phosphatase 79, Total Protein 7.9, Albumin 4.7, Globulin 3.1, Albumin/Globulin Ratio 1.5, Lipase 87 10/19/17 08:15: PT 11.2, INR 0.97, APTT 38.4 H 10/19/17 08:15: WBC 6.7, RBC 4.55, Hgb 13.6, Hct 40.0, MCV 87.9, MCH 29.9, MCHC 34.0, RDW 13.1, Plt Count 311, MPV 9.8, Gran % 58.5, Lymph % (Auto) 32.2, [place] % (Auto) 6.2 H, Eos % (Auto) 2.9, Baso % (Auto) 0.2, Gran # 3.90, Lymph # (Auto ) 2.1, [place] # (Auto) 0.4, Eos # (Auto) 0.2, Baso # (Auto) 0.01 - RAD Interpretation Narrative RAD Interpretations (Text): 10/19/17 11:03 TECHNIQUE: Transvaginal pelvic ultrasound was performed. FINDINGS: UTERUS: Measures 8.1 x 4.1 x 5.7 cm. Anteverted, normal in size and appearance. No fibroid or other mass lesion seen. ENDOMETRIUM: Measures 10 mm in diameter. Normal in appearance. CERVIX: There is fluid in the endocervical canal. RIGHT OVARY: Measures 3.2 x 1.4 x 2.9 cm. No solid mass. Normal flow. There is a prominent tubular structure in the right adnexa measures 7 mm in makenzie posterior dimension. LEFT OVARY: Measures 4.4 x 2.2 x 3.5 cm. No solid mass. Normal flow. There is a 2.8 x 1.6 x 2.3 cm simple cyst. FREE FLUID: No significant free fluid noted. OTHER FINDINGS: None. IMPRESSION: Small amount of fluid in the endocervical canal of uncertain etiology. 2.8 cm simple cyst in the left ovary. Prominent tubular structure in the right adnexa could represent a prominent right fallopian tube, no evidence for hydrosalpinx. Abdominal US without acute abnormality (Nathan Decker) Radiology Orders: 10/19/17 08:16 ABDOMEN COMPLETE [US] Stat 10/19/17 08:17 TRANSVAGINAL [US] Stat <Nathan Decker - Last Filed: 10/19/17 12:30> - Scribe Statement The provider has reviewed the documentation as recorded by the Scribe <Spencer Mcgill - Last Filed: 10/19/17 16:00> - Scribe Statement Jona Kent Patient Seen With Resident: In agreement with resident note which contains more details about the patient. Patient was seen and evaluated with resident. Came up with plan and treatment together. (Spencer Mcgill) Disposition/Present on Arrival - Present on Arrival Any Indicators Present on Arrival: No History of DVT/PE: No History of Uncontrolled Diabetes: No Urinary Catheter: No History of Decub. Ulcer: No History Surgical Site Infection Following: None - Disposition Have Diagnosis and Disposition been Completed?: Yes Disposition Time: 12:22 Patient Plan: Discharge <Nathan Decker - Last Filed: 10/19/17 12:30> <Spencer Mcgill - Last Filed: 10/19/17 16:00> - Disposition Diagnosis: Abdominal pain, Pelvic pain Disposition: HOME/ ROUTINE Condition: GOOD Referrals: Vane Mendoza MD [Primary Care Provider] - Follow up with primary Forms: [facility] ([place])
[2017-10-19 08:31] LABS: INR 0.97; PARTIAL THROMBOPLASTIN TIME 38.4 Seconds (25.1-36.5); PROTHROMBIN TIME 11.2 SECONDS (9.4-12.5)
[2017-10-19 08:39] LABS: ALB/GLOB RATIO 1.5 (1.1-1.8); ALBUMIN 4.7 g/dL (3.0-4.8); ALT/SGPT 27 U/L (7-56); AST/SGOT 18 U/L (14-36); BLOOD UREA NITROGEN 16 mg/dL (7-21); CALCIUM 9.8 mg/dL (8.4-10.5); GFR AFRICAN-AMERICAN > 60; GFR NON-AFRICAN AMERICAN > 60; LIPASE 87 U/L (23-300)
[2017-10-19 08:43] LABS: URINE BILIRUBIN NEGATIVE (NEGATIVE); URINE BLOOD MODERATE (NEGATIVE); URINE GLUCOSE (UA) NEGATIVE (NEGATIVE); URINE LEUKOCYTE ESTERASE NEGATIVE Leu/uL (NEGATIVE); URINE PROTEIN NEGATIVE mg/dL (<30 mg/dL); URINE UROBILINOGEN 0.2 E.U./dL (<1 E.U./dL)
[2017-10-19 08:45] LABS: URINE APPEARANCE CLEAR (CLEAR); URINE COLOR YELLOW (YELLOW)
[2017-10-19 08:48] LABS: HCG,QUALITATIVE URINE NEGATIVE (NEGATIVE)
[2017-10-19 09:02] LABS: URINE BACTERIA FEW (NEG); URINE RBC 0 - 2 /hpf (0-2); URINE WBC 0 - 2 /hpf (0-6)
--- NOTE | 2017-10-19 10:51 | US ---
Date of service: 10/19/2017 HISTORY: Right upper quadrant pain COMPARISON: None. TECHNIQUE: Grayscale imaging was performed. FINDINGS: LIVER: Measures 16.3 cm. Normal echogenicity of the liver parenchyma. No mass. No intrahepatic bile duct dilatation. GALLBLADDER: There are no gallstones, wall thickening or pericholecystic fluid. The sonographic Baez's sign is negative. COMMON BILE DUCT: Measures 3.0 mm. No stones. No dilatation. PANCREAS: Unremarkable as visualized. No mass. No ductal dilatation. RIGHT KIDNEY: Measures 9.0cm. Normal echogenicity. No calculus, mass, or hydronephrosis. LEFT KIDNEY: Measures 9.6cm. Normal echogenicity. No calculus, mass, or hydronephrosis. SPLEEN: Normal in size and contour. No mass. AORTA: No aneurysmal dilatation. IVC: Unremarkable. OTHER FINDINGS: None. IMPRESSION: No cholelithiasis or biliary dilatation.
--- NOTE | 2017-10-19 10:56 | US ---
Date of service: 10/19/2017 HISTORY: right pelvic pain h/o of cyst COMPARISON: 07/10/2019. TECHNIQUE: Transvaginal pelvic ultrasound was performed. FINDINGS: UTERUS: Measures 8.1 x 4.1 x 5.7 cm. Anteverted, normal in size and appearance. No fibroid or other mass lesion seen. ENDOMETRIUM: Measures 10 mm in diameter. Normal in appearance. CERVIX: There is fluid in the endocervical canal. RIGHT OVARY: Measures 3.2 x 1.4 x 2.9 cm. No solid mass. Normal flow. There is a prominent tubular structure in the right adnexa measures 7 mm in makenzie posterior dimension. LEFT OVARY: Measures 4.4 x 2.2 x 3.5 cm. No solid mass. Normal flow. There is a 2.8 x 1.6 x 2.3 cm simple cyst. FREE FLUID: No significant free fluid noted. OTHER FINDINGS: None. IMPRESSION: Small amount of fluid in the endocervical canal of uncertain etiology. 2.8 cm simple cyst in the left ovary. Prominent tubular structure in the right adnexa could represent a prominent right fallopian tube, no evidence for hydrosalpinx.
[2017-10-19 12:45] VITALS: BP 119/70; PULSE 62; RESP 17; O2SAT 99
== END 2017-10-19 12:45 | disposition home or self-care (01) ==
LOC: ED 07:41
DX: R10.2 Pelvic and perineal pain (principal); R10.31 Right lower quadrant pain

== ENCOUNTER 2018-04-19 09:12 | Outpatient (CLI) | payer OTHER | END 2018-04-19 09:13 | disposition home or self-care (01) | LOC: RAD 09:12 ==